=== PATIENT | female | born 1990 | race Native Hawaiian/Other Pacific Islander ===

== ENCOUNTER 2017-02-18 13:32 | Emergency (ER) | payer OTHER ==
[~2017-02-18] VITALS: Ht 162.6 cm; Wt 79.4 kg
[2017-02-18 13:52] VITALS: BP 120/77; TEMP 98.3
== END 2017-02-18 15:12 | disposition home or self-care (01) ==
LOC: ED 13:32
DX: H92.09 Otalgia, unspecified ear (principal)
CPT/HCPCS: 99282

== ENCOUNTER 2017-05-07 13:40 | Emergency (ER) | payer OTHER ==
[~2017-05-07] VITALS: Ht 162.6 cm; Wt 83.9 kg
[2017-05-07 14:01] VITALS: BP 146/90; TEMP 98.5
== END 2017-05-07 14:05 | disposition home or self-care (01) ==
LOC: ED 13:40
DX: M26.601 Right temporomandibular joint disorder, unspecified (principal)
CPT/HCPCS: 99282

== ENCOUNTER 2017-06-20 14:17 | Emergency (ER) | payer OTHER ==
[~2017-06-20] VITALS: Ht 162.6 cm; Wt 83.9 kg
[2017-06-20 14:23] VITALS: BP 124/72; TEMP 98.6
[2017-06-20 15:34] LABS: PLATELET COUNT 278 K/uL (152-353)
[2017-06-20 15:43] LABS: POTASSIUM 3.3 mmol/L (3.6-5.2); SODIUM 135 mmol/L (136-145)
== END 2017-06-20 16:30 | disposition home or self-care (01) ==
LOC: ED 14:17
PROVIDERS: Family Medicine
DX: R07.89 Other chest pain (principal)
CPT/HCPCS: 36415; 80053; 84484; 85027; 93005; 99283

== ENCOUNTER 2022-03-04 12:38 | Emergency (ER) | payer OTHER ==
[~2022-03-04] VITALS: Ht 165.1 cm; Wt 76.7 kg
[2022-03-04 13:55] VITALS: BP 120/69; TEMP 98.6
== END 2022-03-04 13:55 | disposition home or self-care (01) ==
LOC: ED 12:38
DX: S93.492A Sprain of other ligament of left ankle, initial encounter (principal); W10.8XXA Fall (on) (from) other stairs and steps, initial encounter; Y92.098 Other place in other non-institutional residence as the place of occurrence of the external cause
CPT/HCPCS: 96372; 99282; J1885